=== PATIENT | female | born 1950 | race Caucasian/White ===

== ENCOUNTER 2020-12-12 00:57 | Emergency (ER) | payer MEDICARE, OTHER, SELFPAY ==
--- NOTE | 2020-12-12 01:16 | XRR_ITS ---
PROCEDURE INFORMATION: Exam: XR Left Foot Exam date and time: 12/12/2020 1:16 AM Age: 69 years old Clinical indication: Injury or trauma; Blunt trauma; Foot; Left; Patient HX: Fall. Swelling to dorsal surface on lateral side. TECHNIQUE: Imaging protocol: XR Left foot. Views: 3 or more views. COMPARISON: No relevant prior studies available. FINDINGS: Bones/joints: No acute fracture or dislocation. Soft tissues: Normal. XR/XR foot LT min 3V* [id number] IMPRESSION: No acute fracture or dislocation.
[2020-12-12 01:41] VITALS: BP 174/76; PULSE 71; RESP 16; TEMP 36.7; O2SAT 98; BMI 18.8
[2020-12-12 01:44] VITALS: PULSE 77; RESP 16; O2SAT 94
--- NOTE | 2020-12-12 03:42 | ED_ITS ---
HPI - Extremity Problem General: Chief complaint: Extremity Injury, Lower Stated complaint: left foot injury Time Seen by Provider: 12/12/20 03:08 Source: patient Mode of arrival: ambulatory Limitations: no limitations History of Present Illness: HPI Narrative: 69-year-old female states she was walking her house with flip-flops on and got tripped up on carpet and rolled her foot. She she has had swelling to the left side of her foot with pain since then. She states this happened roughly 3 to 4 hours ago. States pain is a 4- 10. States she is able to ambulate on it but it is painful. Denies any other injuries. Associated symptoms: Deny chest pain, fever(s) or rash Review of Systems Const: Denies: fever(s), chills, body aches or change in appetite Eyes: Denies: blurry vision or eye discomfort ENMT: Denies: throat pain or dental pain Card: Denies: chest pain Resp: Denies: dyspnea GI: Denies: abdominal pain, nausea, vomiting or diarrhea : Denies: dysuria Musc: Reports: extremity pain; Denies: neck pain or back pain Skin/Breast: Denies: rash Neuro: Denies: headache(s) Psych: Denies: depression Sampson/Lymph: Denies: easy bruising All/Imm: Denies: urticaria Physical Exam Const: COMMON NORMALS: no acute distress, patient oriented x3 and healthy appearing HENMT: COMMON NORMALS: normocephalic and atraumatic HEAD & SCALP: normocephalic and atraumatic Eye: COMMON NORMALS: Equal, round and reactive pupils present and EOMs intact bilaterally PUPIL: Yes Equal, round and reactive pupils present Neck/C-Spine: COMMON NORMALS: full ROM and supple Chest: COMMONS NORMALS: normal inspection of the chest and normal palpation of entire chest wall Resp: COMMON NORMALS: normal respiratory effort, No retractions, No use of accessory muscles and clear to auscultation bilaterally AUSCULTATION: clear to auscultation bilaterally Cardio: COMMON NORMALS: regular rate, regular rhythm and No murmurs present (Cardio) RATE: regular rate RHYTHM: regular rhythm GI: COMMON NORMALS: Normal to inspection, nondistended, normoactive bowel sounds present, Soft to palpation, non-tender and no masses PALPATION: Yes Soft to palpation Extremity: COMMON NORMALS: full ROM NARRATIVE EXTREMITY EXAM: Swelling no evidence to left lateral foot no obvious deformity Neuro: COMMON NORMALS: patient oriented x3, moves all extremities and no focal motor deficits Psych: COMMON NORMALS: mental status grossly normal, Normal thought process present and cooperative THOUGHT PROCESS: Normal thought process present Skin: COMMON NORMALS: no rashes or lesions noted and no wounds GENERAL SKIN EXAM: no rashes or lesions noted Course Vital Signs: Vital signs: Vital Signs Temperature 98.1 F 12/12/20 01:41 Pulse Rate 77 12/12/20 01:44 Respiratory Rate 16 12/12/20 01:44 Blood Pressure 174/76 12/12/20 01:41 Pulse Oximetry 94 12/12/20 01:44 MDM - Extremity (Nontraumatic) MDM Narrative: Medical decision making narrative: Patient presents here with a foot contusion. She does have significant swelling and some pain with ambulating but is able to ambulate on it. We will Jian wrap and placed on crutches and she is to weight-bear as tolerated. She is to follow-up with Dr. Sethi and return if worsening. Imaging Data^: xr l foot: Attestation: I personally reviewed and interpreted this imaging study as follows: My impression: No obvious fracture Discharge Plan Discharge Patient Disposition: Home Clinical Impression: Foot sprain Qualifiers: Encounter type: initial encounter Laterality: left Qualified Code(s): S93.602A - Unspecified sprain of left foot, initial encounter Condition: Stable Discharge Orders: Discharge ED (Routine); Ordered 12/12/20 Ordered By: Anuel Dee Referrals: Fermin Sethi DPM [Physician] - 1-3 days Fernando Herring DO [Primary Care Provider] - Discharge Diet: Advance as tolerated Discharge Activity: Increase activity as tolerated and Use walker/crutches as instructed Patient Instructions: Foot Sprain (ED) Coding Level of Care Code ED [employer] for Dann Apodaca Exam Comprehensive
[2020-12-12 04:00] VITALS: PULSE 85; RESP 18; O2SAT 96
--- NOTE | 2020-12-15 14:29 | DCPLANNER ---
operational risk manager had message to schedule a follow up appointment for patient with ortho. operational risk manager called the ortho clinic spoke with Claudia, gave clinic patients information. operational risk manager was told that patients information would be printed and reviewed.
--- NOTE | 2020-12-16 13:11 | DCPLANNER ---
Patient has a follow up appointment scheduled for Tuesday, December 17, 2020 at 2:[address] Sethi at ortho - clinic will call patient with appointment information.
--- NOTE | 2021-01-01 12:21 | DCPLANNER ---
Patient had a follow up appointment scheduled for 12.17.20 with ortho - patient did attend appointment.
== END 2020-12-12 04:06 | disposition home or self-care (01) ==
PROVIDERS: Emergency Provider Emergency Medicine; PCP Internal Medicine
DX: S93.602A Unspecified sprain of left foot, initial encounter (principal); X50.1XXA Overexertion from prolonged static or awkward postures, initial encounter; Y92.009 Unspecified place in unspecified non-institutional (private) residence as the place of occurrence of the external cause
CPT/HCPCS: 73630; 99283; E0114

== ENCOUNTER → 2022-11-22 14:50 | Outpatient (BNVA) | payer MEDICARE, OTHER, SELFPAY | PROVIDERS: PCP Internal Medicine; Visit Provider Obstetrics & Gynecology | DX: R32 Unspecified urinary incontinence (principal); R82.90 Unspecified abnormal findings in urine | CPT/HCPCS: 81000; 87086 ==

== ENCOUNTER 2025-01-09 07:37 | Outpatient (CLI) | payer MEDICARE, OTHER, SELFPAY ==
--- NOTE | 2025-01-09 07:52 | NM_ITS ---
WS: [id number] NUCLEAR MEDICINE HIDA SCAN WITH GALLBLADDER EJECTION FRACTION HISTORY: RUQ PAIN COMPARISON: Gallbladder ultrasound 12/12/2024 TECHNIQUE: The patient was intravenously injected with 7.9 mCi of TC99m Mebrofenin. Immediate imaging over the right upper quadrant was followed by 5 minute image and additional images for a total of 60 minutes. Normal uptake of radiotracer throughout the liver. Activity identified in the gallbladder at 20 minutes and well distended by 60 minutes. Activity in the proximal small bowel was seen by 40 minutes. Good washout of the radiotracer from the liver by 60 minutes. The patient then drank 8 ounces of Ensure Plus. Ejection fraction at 60 minutes was 87%. Normal GB ejection fraction is 35-75%. Post fatty meal symptoms: None. NM/NM hepatobiliary w phar* [id number] IMPRESSION: 1. Normal HIDA scan. 2. Normal gallbladder ejection fraction.
== END 2025-01-09 07:38 | disposition home or self-care (01) ==
LOC: RAD 07:44
PROVIDERS: PCP Family Medicine; Visit Provider Family Medicine
DX: R10.11 Right upper quadrant pain (principal)
CPT/HCPCS: 78227; A9537